=== PATIENT | male | born 1985 | race African-American/Black ===

== ENCOUNTER 2019-08-03 10:58 | Emergency (ER) | payer OTHER, SELFPAY ==
--- NOTE | ~2019-08-03 | XR_ITS ---
EXAMINATION: XR hand RT min 3V DATE: 08/03/2019 11:20 INDICATION: Right hand pain. TECHNIQUE: 3 views of right hand were obtained. COMPARISON: None. FINDINGS: Bone alignment is normal. No fracture. There is mild osteoarthritis of first metacarpophala ngeal joint. There are small periarticular calcifications at third metacarpophalangeal joint and firs t interphalangeal joint. IMPRESSION: 1. Mild osteoarthritis of first metacarpophalangeal joint. Reviewed, dictated and finalized at location A.
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
[2019-08-03 10:58] VITALS: PULSE 111; RESP 20; TEMP 36.8; O2SAT 98
[2019-08-03] MEDS: IBUPROFEN IV 800 MG/200 ML 800 MG/200 ML BAG 400 MG IVPB (11:25)
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
[2019-08-03] MEDS: ceFAZolin 2 GM/D5W 50 ML 2 GM/50 ML BAG IVPB (11:34)
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
[2019-08-03 14:53] VITALS: BP 186/72; PULSE 81; RESP 16; TEMP 36.9; O2SAT 95
== END 2019-08-03 14:54 | disposition home or self-care (01) ==
PROVIDERS: Emergency Provider Emergency Medicine
DX: S51.842A Puncture wound with foreign body of left forearm, initial encounter (principal); F17.290 Nicotine dependence, other tobacco product, uncomplicated; M18.9 Osteoarthritis of first carpometacarpal joint, unspecified; X95.9XXA Assault by unspecified firearm discharge, initial encounter
CPT/HCPCS: 73090; 73130; 96365; 96367; 99284; J0690; J1741